=== PATIENT | male | born 1965 | race Caucasian/White ===

== ENCOUNTER 2024-11-13 14:34 | Observation (INO) | payer OTHER ==
[2024-11-13] MEDS ORDERED: Iopamidol-370 76% 500 ML MDV (1 ML CHARGE) ONE (15:40)
[2024-11-13] MEDS ORDERED: Ondansetron PF 4 MG/2 ML Vial IVP PRN (17:07)
[2024-11-13] MEDS ORDERED: Calcium Carbonate 500 MG ChewTAB PO PRN (17:07)
[2024-11-13] MEDS ORDERED: Acetaminophen 325 MG TAB PO PRN (17:07)
[2024-11-13] MEDS ORDERED: Ipratropium/Albuterol 3 ML NEB NEB PRN (17:25)
[2024-11-13] MEDS ORDERED: Benzonatate 100 MG CAP PO PRN (17:25)
[2024-11-13] MEDS ORDERED: Lorazepam 1 MG TAB PO PRN (17:29)
[2024-11-13] MEDS ORDERED: Lorazepam 2 MG/ML VIAL IM PRN (17:29)
[2024-11-13] MEDS ORDERED: Potassium Chloride 20 MEQ TAB ONE (17:57)
[2024-11-13] MEDS: Thiamine HCl 200 MG/2 ML VIAL SLOW IVP SCH (18:43)
[2024-11-13 19:18] VITALS: BMI 37.1
[2024-11-13] MEDS: Propranolol 40 MG TAB PO SCH (21:18)
[2024-11-14 05:32] LABS: #Basophils 0.05 10x3/uL (0.0-0.2); %Basophils 0.6 % (0.0-1.0); %Eosinophils 4.9 % (0.0-10.0); %Lymphocytes 20.7 % (21.0-51.0); %Monocytes 9.5 % (0.0-10.0); %Neutrophils 63.9 % (42.0-75.0); Hematocrit 35.8 % (42.0-52.0); Hemoglobin 11.1 g/dL (14.0-18.0); Mean Corpuscular Hemoglobin 25.4 pg (27.0-31.0); Mean Corpuscular Volume 81.9 fL (78.0-98.0); Mean Platelet Volume 9.8 fL (7.4-10.4); Platelet Count 280 10x3/uL (130-400); RBC Distribution Width 16.2 % (11.5-14.5); Red Blood Cell (RBC) Count 4.37 mill/uL (4.70-6.10)
[2024-11-14 05:44] LABS: INR-International Normal Ratio 1.2; Prothrombin Time 15.1 sec (12.0-14.7)
[2024-11-14 05:46] LABS: ALT (SGPT) 22 U/L (8-55); AST (SGOT) 50 U/L (5-34); Alkaline Phosphatase 132 U/L (40-110); Anion Gap 11 mmol/L (10-20); BUN (Urea Nitrogen) 5 mg/dL (8.4-25.7); Bilirubin, Total 0.9 mg/dL (0.2-1.2); Calc. Creatinine Clearance 228 mL/min (70-130); Calcium 8.3 mg/dL (7.8-10.44); Carbon Dioxide 27 mmol/L (22-29); Chloride 104 mmol/L (98-107); Estimated GFR 111; Globulin 4.3 g/dL (2.4-3.5); Glucose 98 mg/dL (70-105); Magnesium 2.2 mg/dL (1.6-2.6); Potassium 3.3 mmol/L (3.5-5.1); Protein, Total 7.3 g/dL (6.0-8.3); Sodium 139 mmol/L (136-145)
[2024-11-14 05:47] LABS: Bilirubin, Direct 0.4 mg/dL (0.1-0.3); Phosphorus 2.4 mg/dL (2.3-4.7)
[2024-11-14 06:09] LABS: Ferritin 52.37 ng/mL (22-322)
[2024-11-14 06:11] LABS: HBsAg Index 0.26 S/CO (0-0.99); Hep A IgM AB NONREACTIVE (NonReactive); Hep A IgM S/CO 0.16 S/CO (0-0.79); Hep B Core IgM Index 0.07 S/CO (0-0.79); Hep B Surf Ag NONREACTIVE S/CO (NonReactive); Hep C IgG Ab NONREACTIVE S/CO (NonReactive); Hep C Index 0.15 S/CO (0-0.79); Hepatitis B Core IgM Abs NONREACTIVE S/CO (NonReactive)
[2024-11-14] MEDS: Multivit, Therapeutic 1 TAB PO SCH (09:43)
[2024-11-14] MEDS: Pantoprazole 40 MG DR.TAB PO SCH (09:43)
[2024-11-14] MEDS: Ketorolac Tromethamine 30 MG (1 mL) VIAL IVP SCH (09:43)
[2024-11-14] MEDS: Folic Acid 1 MG TAB PO SCH (09:43)
[2024-11-14] MEDS: Nicotine 21 MG PATCH TD SCH (09:43)
[2024-11-14] MEDS: Furosemide 40 MG (4 mL) VIAL SLOW IVP SCH (09:44)
[2024-11-14] MEDS: Senokot S 8.6-50 MG TAB PO PRN (09:54)
[2024-11-14] MEDS: Pantoprazole 40 MG GRANULES PACKET PO SCH (10:06)
[2024-11-14 11:43] LABS: Amphetamine Not Detected (NotDetected); Barbiturates Screen Not Detected (NotDetected); Benzodiazepine Screen Not Detected (NotDetected); Cocaine Metabolite Screen Not Detected (NotDetected); Methadone Not Detected (NotDetected); Methamphetamine Not Detected (NotDetected); Opiate Screen Not Detected (NotDetected); Oxycodone Screen Not Detected (NotDetected); Phencyclidine (PCP) Not Detected (NotDetected); THC/Cannabinoid Screen Not Detected (NotDetected); Tricyclic Screen Not Detected (NotDetected)
[2024-11-14 15:38] VITALS: BP 157/83; TEMP 97.7
[2024-11-14] MEDS ORDERED: Lorazepam 1 MG TAB PO PRN (17:29)
[2024-11-15] MEDS ORDERED: Lorazepam 1 MG TAB PO PRN (17:29)
[2024-11-16] MEDS ORDERED: Lorazepam 0.5 MG TAB PO PRN (17:29)
[2024-11-16] MEDS ORDERED: Thiamine 100 MG TAB PO SCH (21:00)
[2024-11-17 11:47] LABS: ANA Symphony (Qualitative) Negative (Negative); ANA Symphony (Quantitative) 0.4 Ratio (< 0.7 Negative); dsDNA IgG Antibody 2.6 IU/mL (<10 Negative)
[2024-11-17 12:24] LABS: EliA Vaculitis New Method **** NEW METHOD ****; Mitochondrial Ab 1.3 U/mL (<4 Negative)
== END 2024-11-14 15:20 | disposition home or self-care (01) ==
LOC: SUATTDRO 14:34 → ERS 14:34 → T4-A 17:07 → INTOOBSV 17:07
PROVIDERS: ADMIT Internal Medicine; ATTEND Internal Medicine
DX: R18.8 Other ascites (principal); I10 Essential (primary) hypertension; E87.6 Hypokalemia; E66.9 Obesity, unspecified; F17.200 Nicotine dependence, unspecified, uncomplicated; F10.10 Alcohol abuse, uncomplicated; Y90.9 Presence of alcohol in blood, level not specified; Z79.899 Other long term (current) drug therapy
CPT/HCPCS: 36415; 74177; 80053; 80074; 80306; 82103; 82105; 82248; 82390; 82728; 83516; 83615; 83735; 84100; 85025; 85610; 86015; 86038; 86225; 93005; G0378; J1885; J1940; J3411; Q9967